=== PATIENT | female | born 1990 | race African-American/Black ===

== ENCOUNTER 2021-03-26 21:11 | Emergency (ER) | payer MEDICAID ==
[~2021-03-26] VITALS: Ht 157.5 cm; Wt 61.0 kg
[2021-03-27 00:13] VITALS: BP 116/67
[2021-03-27] MEDS: ACETAMINOPHEN WITH CODEINE 300/30MG TABLET PO ONE (00:13)
[2021-03-27] MEDS: METHOCARBAMOL 500MG TABLET PO ONE (00:13)
[2021-03-27] MEDS ORDERED: IBUP-2029 MT (02:04)
== END 2021-03-27 02:24 | disposition left against medical advice (07) ==
LOC: ER 21:11
DX: S16.1XXA Strain of muscle, fascia and tendon at neck level, initial encounter (principal); Z98.890 Other specified postprocedural states; V49.9XXA Car occupant (driver) (passenger) injured in unspecified traffic accident, initial encounter; Y93.89 Activity, other specified; Y92.89 Other specified places as the place of occurrence of the external cause; Y99.8 Other external cause status
CPT/HCPCS: 72040; 73590; 81025; 99284